=== PATIENT | male | born 1950 | race Caucasian/White ===

== ENCOUNTER 2016-10-17 10:26 | Day surgery (SDC) | payer MEDICARE, OTHER ==
[2016-10-10 08:36] LABS: HEMATOCRIT 44.5 % (40.0-51.0)
--- NOTE | ~2016-10-17 | OP ---
Record Of Operation [facility] [address] [place]. [address] NAME: NINO COMBS : 46 STATUS : [facility]#: [id number] AGE: 66 ADM/REG DATE : 10/17/16 MR#: [id number] REPORT SERV DATE: 10/18/16 DICTATED BY: CESAR REESE DATE: 10/17/16 REPORT STATUS : Draft TRANSCRIBED BY: MODL DATE: 10/17/16 DATE OF PROCEDURE: 10/17/2016 PREOPERATIVE DIAGNOSIS: Large incarcerated bilateral inguinal hernias. POSTOPERATIVE DIAGNOSIS: Bilateral pantaloon incarcerated inguinal hernias. PROCEDURE: Robotic bilateral incarcerated pantaloon hernia repairs with mesh. ANESTHESIA: General. SURGEON: Cesar Reese M.D. BUSINESS RECORDS MANAGER: Jasvir. COMPLICATIONS: None. DRAINS: None. ESTIMATED BLOOD LOSS: 20 mL. FINDINGS: 1. The patient was noted to have large bilateral pantaloon-type inguinal hernias with complete loss of the pelvic floor bilaterally with incarceration of the sigmoid colon into the left hernia. 2. An additional one-hour surgery required secondary to the chronicity of the hernias with loss of pelvic floor and need for reconstruction. OPERATIVE TECHNIQUE: The patient was brought to the operating room and placed on the table in supine position. He had preoperative IV antibiotics. He voided prior to the procedure. He had sequential hose in place. He underwent general endotracheal anesthesia, was prepped and draped in sterile fashion, and time-out was completed. Local anesthesia was instilled to the supraumbilical skin and a #5 blade knife was used to make incision longitudinally in the midline. The Veress needle was inserted where the skin and fascia were elevated and the water drop test was safely performed. A 15 mm of pneumoperitoneum was obtained. The 12-mm trocar was inserted under direct visualization as Optiview into the abdomen, there was no evidence of Veress or trocar injury upon placement of the robotic camera. The above aforementioned findings were noted with the insertion of the camera with a large amount of sigmoid colon incarcerated into the left defect. On both sides, the only thing visible in the pelvic floor was the inferior epigastric vessels dividing the direct and indirect components bilaterally. At this point, the right and left 8-mm robotic trocars were placed under direct visualization even on the right and left sides of the initial supraumbilical trocar. The patient was then placed in Trendelenburg. The dissection began on the right side. The peritoneal reflection was divided two fingerbreadths medially and superiorly to the anterior iliac spine and taken towards the median umbilical ligament. Blunt dissection continued until Rogelio's ligament, iliopubic tract, and transverse arch was identified Record Of Operation [facility] [address] [place]. [address] NAME: NINO COMBS : 46 STATUS : [facility] PAT#: [id number] AGE: 66 ADM/REG DATE : 10/17/16 MR#: [id number] REPORT SERV DATE: 10/18/16 DICTATED BY: CESAR REESE DATE: 10/17/16 REPORT STATUS : Draft TRANSCRIBED BY: MACEY DATE: 10/17/16 medially and laterally. The patient was noted to have large direct and indirect inguinal hernia components, these were carefully and bluntly dissected away and reduced under direct visualization identifying the peritoneum until they were completely reduced several centimeters proximal to where the vas joined the neurovascular structures of the cord, which were identified and preserved throughout the procedure. After the entire pelvic floor was reduced, the 3D Max mesh for the left and right sides were placed into the abdomen. The right side was then secured with the mesh being placed into the operative field, and it was positioned approximately 1 to 2 cm below the inferior edge of Rogelio's ligament. Next, attention was turned to the left side. The peritoneum was scored as described for the right side. Blunt dissection continued until all the facial structures were identified and the hernia sacs were reduced. Due to the complexity on the left side and the large amount sigmoid colon requiring careful slow dissection, the left side took longer due to the large size of both hernias, an additional hour of dissection was necessary to reduce them completely. The dissection continued on the patient's left side until the entire pelvic floor was identified and reduced. The vas and neurovascular structures were preserved on the left side as well the inferior epigastric vessels were identified and preserved bilaterally. At this point, the left-sided mesh was placed. The two pieces of the mesh were reapproximated at the pubic tubercle in the midline and a 3-0 Ethibond suture was used to secure those two pieces of mesh to the inferior aspect of the Rogelio's ligament. The mesh was then secured bilaterally to the more lateral Rogelio's ligament just medial to the iliac vessels bilaterally and laterally to the iliopubic tract under minimal tension. The superior aspects of the mesh were secured medial to the iliopubic tract with single Ethibond 3-0 sutures as well. These were all individual sutures. After the entire pelvic floor had been reconstructed, the abdomen was examined and there was no evidence of any other hernias or other visual abnormalities. The peritoneum was then reapproximated bilaterally with a running 3-0 V-Loc sutures with pneumoperitoneum reduced to approximately 8 mm. Care was taken not to involve the sigmoid colon with closure of the peritoneum on the left. At this point, all the instruments were removed as the pneumoperitoneum was aspirated. The patient cart was undocked. The anterior fascia and the midline was reapproximated using a running 0 Vicryl suture. The skin edges were reapproximated using running subcuticular Monocryl sutures. Dermabond was applied. He was extubated and taken to the recovery room in stable condition. All sponge and needle counts were reported correct. /MODL Cesar Reese M.D. / [id number] CC: Catarina Velasquez M.D.
[~2016-10-17 10:26] MED LIST: ADVIL PO; CLARIT10 PO
== END 2016-10-17 21:02 | disposition home or self-care (01) ==
LOC: SDC 10:26
PROVIDERS: Surgery
PROC: 0YUA0JZ Supplement Bilateral Inguinal Region with Synthetic Substitute, Open Approach (ICD-10-PCS; principal; 2016-10-17 11:30)
DX: K40.20 Bilateral inguinal hernia, without obstruction or gangrene, not specified as recurrent (principal); G25.81 Restless legs syndrome; H26.9 Unspecified cataract; M19.90 Unspecified osteoarthritis, unspecified site; M17.11 Unilateral primary osteoarthritis, right knee; Z90.89 Acquired absence of other organs; Z85.828 Personal history of other malignant neoplasm of skin; Z79.899 Other long term (current) drug therapy
CPT/HCPCS: 85014; 85018; 93005; C1781; J0690; J1170; J1885; J2250; J2405; J2710; J3010